=== PATIENT | male | born 1960 | race Two or more races ===

== ENCOUNTER 2024-04-29 14:13 | Inpatient (IN) | payer MEDICARE, MEDICAID ==
[~2024-04-29] VITALS: Ht 167.6 cm; Wt 93.0 kg
[2024-04-29 15:00] LABS: COVID AG,FIA SOURCE NASAL SWAB
[2024-04-29] MEDS ORDERED: QUET100T PO (15:00)
[2024-04-29] MEDS ORDERED: CARV6.2534 PO (15:00)
[2024-04-29] MEDS ORDERED: DONE-51 PO (15:00)
[2024-04-29] MEDS ORDERED: MEMA10TA24 PO (15:00)
[2024-04-29] MEDS ORDERED: PANT20TA18 PO (15:00)
[2024-04-29] MEDS ORDERED: CITA-107 PO (15:00)
[2024-04-29] MEDS ORDERED: CLON-441 PO (15:00)
[2024-04-29] MEDS ORDERED: VALP250C48 PO (15:00)
[2024-04-29] MEDS ORDERED: LORA-999 PO (15:00)
[2024-04-29] MEDS ORDERED: APIX2.5T PO (15:00)
[2024-04-29 15:03] LABS: BASOPHILS % (AUTO) 0.5 % (0.0-2.0); EOSINOPHILS % (AUTO) 5.4 % (1.0-6.0); HEMATOCRIT 27.6 % (41-53); HEMOGLOBIN 8.9 g/dL (13.5-17.5); LYMPHOCYTES # (AUTO) 1.1 K/uL (1.0-4.8); LYMPHOCYTES % (AUTO) 29.2 % (22.0-44.0); MEAN CORPUSCULAR HGB CONC 32.3 G/dL (31.0-37.0); MEAN CORPUSCULAR VOLUME 93 fL (80-100); MONOCYTES # (AUTO) 0.5 K/uL (0.1-1.0); MONOCYTES % (AUTO) 12.4 % (2.0-9.0); NEUTROPHILS # (AUTO) 2.1 K/uL (1.8-7.7); NEUTROPHILS % (AUTO) 52.5 % (40.0-70.0); PLATELET COUNT (AUTO) 164 K/uL (150-450); RED BLOOD CELL COUNT(AUTO) 2.97 MIL/uL (4.50-5.90); WHITE BLOOD COUNT (AUTO) 3.9 K/uL (4.5-11.0)
[2024-04-29 15:14] LABS: ANION GAP 10 mmol/L (8-16); CALCIUM, TOTAL 8.7 mg/dL (8.8-10.5); CARBON DIOXIDE 24 mmol/L (22-29); CHLORIDE 104 mmol/L (98-107); CREATININE 1.92 mg/dL (0.60-1.30); GLOMERULAR FILTR. RATE CALC 36 mL/min (>60); GLUCOSE,RANDOM 180 mg/dL (70-110); POTASSIUM 5.4 mmol/L (3.5-5.1); SODIUM SERUM 138 mmol/L (136-145); UREA NITROGEN, BLOOD 36 mg/dL (7-18)
[2024-04-29 15:18] LABS: SARS-COV2 (COVID) ANTIGEN,FIA Negative (Negative)
[2024-04-29 15:20] LABS: ALBUMIN 3.3 g/dL (3.4-5.0); ALKALINE PHOSPHATASE 105 U/L (46-116); ASPARTATE AMINOTRANSFERASE 6 U/L (15-37); BILIRUBIN,TOTAL 0.3 mg/dL (0.1-1.0); TOTAL PROTEIN, SERUM 7.6 g/dL (6.4-8.2)
[2024-04-29 15:33] LABS: ALCOHOL, BLOOD (SERUM) < 3 mg/dL (0-10)
[2024-04-29 15:35] LABS: ALANINE AMINOTRANSFERASE 5 U/L (12-78); BILIRUBIN,DIRECT < 0.05 mg/dL (0.00-0.20)
[2024-04-29] MEDS ORDERED: MAGNESIUM HYDROXIDE SUSPENSION 30 ML UDCUP PO PRN (16:15)
[2024-04-29] MEDS ORDERED: ZOLPIDEM TARTRATE 10 MG TABLET PO PRN (16:15)
[2024-04-29] MEDS ORDERED: LOPERAMIDE HCL 2 MG CAPSULE PO PRN (16:15)
[2024-04-29] MEDS ORDERED: MAG HYDROX/ALUMINUM HYD/SIMETH ES 30 ML SUSPENSION UDCUP PO PRN (16:15)
[2024-04-29] MEDS ORDERED: ACETAMINOPHEN 325 MG TABLET PO PRN (16:15)
[2024-04-29] MEDS ORDERED: LORazepam 2 MG TABLET PO PRN (16:15)
[2024-04-29] MEDS ORDERED: HALOPERIDOL 5 MG TABLET PO PRN (16:15)
[2024-04-29 18:09] VITALS: O2SAT 97
[2024-04-29] MEDS: SODIUM ZIRCONIUM CYCLOSILICATE 5 GM POWDER PACKET PO ONE (20:07)
[2024-04-30 05:18] VITALS: BP 162/89; PULSE 77; RESP 18; TEMP 98.4; O2SAT 97
[2024-04-30] MEDS ORDERED: LOPERAMIDE HCL 2 MG CAPSULE PO PRN (06:30)
[2024-04-30] MEDS ORDERED: ONDANSETRON 4 MG TABLET PO PRN (06:30)
[2024-04-30] MEDS ORDERED: MAGNESIUM HYDROXIDE SUSPENSION 30 ML UDCUP PO PRN (06:30)
[2024-04-30] MEDS ORDERED: ALBUTEROL SULFATE HFA 90 MCG/PUFF 8 GM INHALER IH PRN (06:30)
[2024-04-30] MEDS ORDERED: NICOTINE 14 MG/24 HOUR PATCH TD PRN (06:30)
[2024-04-30] MEDS ORDERED: GuaiFENesin/D-METHORPHAN [SUGAR-FREE] 200-20MG/10 ML SYRUP UDCUP PO PRN (06:30)
[2024-04-30] MEDS ORDERED: DOCUSATE SODIUM 100 MG CAPSULE PO PRN (06:30)
[2024-04-30] MEDS ORDERED: MAG HYDROX/ALUMINUM HYD/SIMETH ES 30 ML SUSPENSION UDCUP PO PRN (06:30)
[2024-04-30] MEDS ORDERED: IBUPROFEN 400 MG TABLET PO PRN (06:30)
[2024-04-30] MEDS ORDERED: CloNIDine HCL 0.1 MG TABLET PO PRN (06:30)
[2024-04-30] MEDS ORDERED: PETROLATUM,WHITE 28 GM JELLY TP PRN (06:30)
[2024-04-30] MEDS ORDERED: ACETAMINOPHEN 325 MG TABLET PO PRN (06:30)
[2024-04-30] MEDS: AmLODIPine BESYLATE 5 MG TABLET PO SCH (08:00)
[2024-04-30 08:05] VITALS: BP_SYST 157; BP_SYST 167; BP_DIAS 90; BP_DIAS 95; PULSE 86; PULSE 90; RESP 17; TEMP 97; O2SAT 96; O2SAT 98
[2024-04-30] MEDS: CARVEDILOL 3.125 MG TABLET PO SCH (09:15)
[2024-04-30] MEDS: APIXABAN 5 MG TABLET PO SCH (09:16)
[2024-04-30] MEDS: VALPROIC ACID 250 MG CAPSULE PO SCH (12:23)
[2024-04-30] MEDS: QUEtiapine FUMARATE 100 MG TABLET PO SCH (12:23)
[2024-04-30] MEDS: CITALOPRAM HYDROBROMIDE 20 MG TABLET PO SCH (12:23)
[2024-04-30 12:49] VITALS: BP 127/73; PULSE 84; RESP 16; O2SAT 98
[2024-04-30 16:11] VITALS: BP 147/83; PULSE 84; RESP 16; O2SAT 98
[2024-04-30] MEDS: INFLUENZA VIRUS VACCINE TVS (6MO+) 2024-25/PF 45 MCG/0.5 ML SYRINGE IM. ONE (16:17)
[2024-04-30] MEDS: QUEtiapine FUMARATE 200 MG TABLET PO SCH (20:13)
[2024-04-30] MEDS: DONEPEZIL HCL 10 MG TABLET PO SCH (20:13)
[2024-04-30] MEDS: MEMANTINE HCL 10 MG TABLET PO SCH (20:13)
[2024-04-30 20:31] VITALS: BP 98/61; PULSE 90; RESP 16; TEMP 98; O2SAT 96
[2024-05-01 08:12] VITALS: BP 122/72; PULSE 81; RESP 17; TEMP 98.5; O2SAT 97
[2024-05-01] MEDS: SODIUM ZIRCONIUM CYCLOSILICATE 5 GM POWDER PACKET PO SCH (16:01)
[2024-05-01 18:00] VITALS: BP 142/78; PULSE 80; RESP 18
[2024-05-01] MEDS: ETHYL ALCOHOL 62% ANTISEPTIC NASAL SANITIZER 0.6 ML AMPUL NASAL SCH (21:14)
[2024-05-01 21:52] VITALS: BP 129/73; PULSE 81; RESP 18; TEMP 98.2
[2024-05-01] MEDS: CHLORHEXIDINE GLUCONATE 2% TOWELETTE [2'S/6'S] TP SCH (22:15)
[2024-05-02 08:50] VITALS: PULSE 84; RESP 18; TEMP 97.9; O2SAT 97
[2024-05-02 20:23] VITALS: BP 128/65; PULSE 80; RESP 18; TEMP 97.5; O2SAT 98
[2024-05-02] MEDS: QUEtiapine FUMARATE 300 MG TABLET PO SCH (20:48)
[2024-05-03 08:00] VITALS: BP 120/68; PULSE 74; RESP 18; TEMP 97.1; O2SAT 100
[2024-05-03 16:37] VITALS: BP 147/76; PULSE 78; RESP 18; TEMP 97.8; O2SAT 99
[2024-05-03 20:01] VITALS: BP 140/78; PULSE 78; RESP 18; TEMP 97.6; O2SAT 99
[2024-05-04 08:15] VITALS: RESP 18
[2024-05-04 20:06] VITALS: RESP 16
[2024-05-05 08:15] VITALS: RESP 17
[2024-05-05 21:56] VITALS: RESP 18
[2024-05-06 08:04] VITALS: BP 141/83; PULSE 83; RESP 16; TEMP 97.2; O2SAT 97
[2024-05-06] MEDS ORDERED: QUET300T2 PO (12:16)
[2024-05-06] MEDS ORDERED: VALP250C48 PO (12:16)
== END 2024-05-06 16:16 | DRG 885 ==
LOC: EMS 14:13 → EDBD 14:13 → B2X 23:53
PROVIDERS: ADMIT Psychiatry & Neurology Psychiatry; ATTEND Psychiatry & Neurology Psychiatry
PROC: GZ52ZZZ Individual Psychotherapy, Cognitive (ICD-10-PCS; principal; 2024-04-30)
PROC: GZHZZZZ Group Psychotherapy (ICD-10-PCS; 2024-04-30)
DX: F25.0 Schizoaffective disorder, bipolar type (principal); N17.9 Acute kidney failure, unspecified; F02.818 Dementia in other diseases classified elsewhere, unspecified severity, with other behavioral disturbance; N18.9 Chronic kidney disease, unspecified; G20.A1 Parkinson's disease without dyskinesia, without mention of fluctuations; I48.91 Unspecified atrial fibrillation; Z20.822 Contact with and (suspected) exposure to COVID-19; E66.9 Obesity, unspecified; Z68.33 Body mass index [BMI] 33.0-33.9, adult; E87.6 Hypokalemia; K59.00 Constipation, unspecified; R79.89 Other specified abnormal findings of blood chemistry; F41.9 Anxiety disorder, unspecified; Z53.20 Procedure and treatment not carried out because of patient's decision for unspecified reasons; Z79.899 Other long term (current) drug therapy; I12.9 Hypertensive chronic kidney disease with stage 1 through stage 4 chronic kidney disease, or unspecified chronic kidney disease
CPT/HCPCS: 80048; 80076; 85025; 87081; 87481; G0480